=== PATIENT | female | born 2000 | race Caucasian/White ===

== ENCOUNTER 2020-09-22 12:45 | Outpatient (REF) | payer OTHER, SELFPAY ==
[2020-09-22 13:24] LABS: COVID-19 Test Negative (Negative)
== END 2020-09-22 12:46 | disposition home or self-care (01) ==
LOC: HO.LAB 12:45
PROVIDERS: PCP Pediatrics; Visit Provider Internal Medicine
DX: Z20.828 Contact with and (suspected) exposure to other viral communicable diseases (principal)
CPT/HCPCS: 87635; C9803

== ENCOUNTER 2020-09-28 12:53 | Outpatient (REF) | payer OTHER, SELFPAY ==
[2020-09-28 14:29] LABS: COVID-19 Test Negative (Negative)
== END 2020-09-28 12:54 | disposition home or self-care (01) ==
LOC: HO.EMPCOV 12:53
PROVIDERS: Visit Provider Internal Medicine
DX: Z20.828 Contact with and (suspected) exposure to other viral communicable diseases (principal)
CPT/HCPCS: 87635; C9803

== ENCOUNTER 2020-10-14 08:33 | Outpatient (REF) | payer OTHER, SELFPAY ==
[2020-10-14 08:48] LABS: COVID-19 Test Positive (Negative)
== END 2020-10-14 08:34 | disposition home or self-care (01) ==
LOC: HO.EMPCOV 08:33
PROVIDERS: PCP Pediatrics; Visit Provider Internal Medicine
DX: Z20.828 Contact with and (suspected) exposure to other viral communicable diseases (principal)
CPT/HCPCS: 87635; C9803